=== PATIENT | female | born 1935 | race Caucasian/White ===

== ENCOUNTER 2020-06-09 19:10 | Emergency (ER) | payer OTHER ==
[~2020-06-09] VITALS: Ht 152.4 cm; Wt 62.6 kg
[2020-06-09] MEDS ORDERED: NORVASC5 MG PO (20:02)
[2020-06-09] MEDS ORDERED: GALANTAMINE HBR24 MG PO (20:02)
[2020-06-09] MEDS ORDERED: NAMENDA5 MG PO (20:03)
[2020-06-09] MEDS ORDERED: COZAAR50 MG PO (20:03)
== END 2020-06-09 20:37 | disposition home or self-care (01) ==
LOC: ER 19:10
DX: S50.871A Other superficial bite of right forearm, initial encounter (principal); L03.113 Cellulitis of right upper limb; W54.0XXA Bitten by dog, initial encounter; Y93.89 Activity, other specified; Y92.89 Other specified places as the place of occurrence of the external cause; Y99.8 Other external cause status